=== PATIENT | male | born 1950 | race Caucasian/White ===

== ENCOUNTER → 2020-08-19 12:39 | Outpatient (CLI) | payer OTHER, SELFPAY ==
--- NOTE | 2020-08-19 12:41 | DI.US.S_ITS ---
PROCEDURE: US SCROTUM INDICATIONS: TESTICULAR FULLNESS - RULE OUT HYDROCELE AND HERNIA TECHNIQUE: Real-time scanning was performed of the scrotum and testicles, with image documentation. Color and pulse Doppler interrogation was performed of both testicles. COMPARISON: None. FINDINGS: Right: Testicle is normal in size at 3.0 x 3.5 x 6.0 cm, and homogenous in echotexture. Epididymis is normal in overall size and morphology except for presence of a cyst structure at the right epididymal midbody posteriorly, measuring up to 1.5 x 2.5 x 3.0 cm. This has a small internal septation. . No hydrocele or varicoceles. Overlying scrotal skin is normal in thickness. Left: Testicle is normal in size at 2.9 x 4.7 x 5.3 cm, and homogeneous in echotexture. Epididymis is normal in overall size and morphology except for a larger cystic structure associated with the left epididymis at all head/body junction measuring up to 3.4 x 3.9 x 6.8 cm. . No hydrocele or varicoceles. Overlying scrotal skin is normal in thickness. Doppler: Color and pulse Doppler demonstrate normal and symmetric arterial flow in both testicles. IMPRESSION: Bilateral cystic structures are present associated with the epididymis, measuring up to 3.0 cm on the right at the mid body and 6.8 cm longitudinally in its maximal dimension at the epididymal head/body junction on the left. These appear to represent epididymal cysts rather than hydroceles. No testicular inflammation or solid mass is found. Dictated by: Yg Herrera M.D. on 08/19/2020 at 15:22 Approved by: Yg Herrera M.D. on 08/19/2020 at 15:26
== END ==
PROVIDERS: PCP Family Medicine; Referring Provider Specialist; Visit Provider Specialist
DX: N50.89 Other specified disorders of the male genital organs (principal)
CPT/HCPCS: 76870

== ENCOUNTER 2020-09-07 07:56 | Day surgery (SDC) | payer OTHER, SELFPAY ==
[2020-09-07] VITALS (9 sets, daily range): BP systolic 110–128; BP diastolic 68–80; PULSE 51–63; RESP 10–20; TEMP 36–36.9; O2SAT 96–98; BMI 28.5
[2020-09-07] MEDS: LACTATED RINGERS 1,000 ML 42 ML IV (08:32)
[2020-09-07] MEDS: CEFAZOLIN 2 GM/100 ML FROZ.PIGGY IV (08:45)
--- NOTE | 2020-09-07 09:05 | SUR.OPER ---
Supine on padded OR bed, head on pillow, arms secured on padded arm boards at <90 degrees abduction, legs uncrossed, safety belt at thigh, tape over blanket over lower legs.
[2020-09-07] MEDS: BUPIVACAINE 0.5% (PF) VIAL 30 ML INJ (09:12)
--- NOTE | 2020-09-07 10:17 | PM.PREOP ---
Pre-operative Note COVID-19 COVID-19 status: Negative Result date/Date tested (Pos, Neg/Pending): 09/04/20 Interval Note History & Physical reviewed/Exam performed by Physician: Yes Changes to H&P: No
--- NOTE | 2020-09-07 10:24 | PM.OP.1 ---
Operative Date/Time/Diagnoses Date of procedure: 09/07/20 Time of procedure: 10:25 Pre-op diagnosis: Left inguinal hernia reducible Post-op diagnosis: same (Indirect with a lipoma of the cord.) Procedure & Clinicians Procedure: Repair left inguinal hernia with modified shoudice technique Same procedure as scheduled: Yes Indications: Symptomatic left inguinal hernia Surgeon: Oumar Pritchett Click Yes if Unassisted: Yes Anesthesia Type: General Operative Notes Findings: Indirect sac with a lipoma of the cord adjacent to it Closure Type: primary Specimen(s): none sent Prosthetic devices, grafts, tissues, transplants, or devices: None Estimated Blood Loss (mL): 5 Blood products transfused: none Procedure in detail: The patient was placed supine on the operating room table and underwent general LMA anesthesia. He was prepped and draped in the usual fashion. A transverse incision was made overlying the left internal ring and carried down to the level of the external oblique. The external oblique was opened parallel with its fibers through the external ring. The cord structures were elevated. The cremaster was opened proximally and search made for an indirect sac. A lipoma of the cord was from surrounding structures and ligated at the level the deep epigastric vessels. Distal portion was removed. An indirect sac was identified from the cord structures. It was opened dissected back to the level the deep epigastric vessels were it was suture ligated with a 2 0 silk. Local anesthetic was infiltrated in the base and the stump allowed to retract.. The floor was examined and was found to be mildly weakened.. The floor was opened from the internal ring to the pubic tubercle region. A 2 0 Prolene was used to suture the underside of the medial edge to the cut side of the lateral tissues running from pubic tubercle to recreate an internal ring. This ring was not but not constricting to the point of vascular embarrassment to the testicle. This stitch was then run back to the pubic tubercle suturing the cut edge of the medial tissues to the ileopubic tract and edge of the inguinal ligament. Was tied at the pubic tubercle. I decided not to incorporate any additional tissues. The repair appeared to be quite adequate. The external oblique was closed with a running 3 0 Vicryl suture. The subcu was closed with interrupted 4-0 Vicryl. The skin was closed with a running 4 0 Vicryl subcuticular stitch and Steri-Strips. Dressing was applied, the patient was awakened, and the patient was taken to the recovery area in good condition. Complications: none Post-operative Condition: stable Disposition: PACU Plan for aftercare: Follow-up in the office
[2020-09-07] MEDS: OXYCODONE/ACETAMINOPHEN 5/325 TABLET 1 TAB PO (10:35)
--- NOTE | 2020-09-07 10:55 | SUR.PHASEII ---
pt arrived to phase II via stretcher. pt sitting up, A&Ox3 and talking to RN at bedside. Drsg observed to be c/d/i. pt denies any pain/discomfort or nausea. pt awaiting arrival of spouse at this time. bed in lowest position and call light given to pt.
== END 2020-09-07 11:26 | disposition home or self-care (01) ==
PROVIDERS: PCP Family Medicine; Referring Provider Family Medicine; Visit Provider Specialist
PROC: (CPT 49505; principal; 2020-09-07 09:15)
DX: K40.90 Unilateral inguinal hernia, without obstruction or gangrene, not specified as recurrent (principal); D17.6 Benign lipomatous neoplasm of spermatic cord
CPT/HCPCS: 49505; 82962; J0690; J1100; J1885; J2250; J2405; J2704; J3010

== ENCOUNTER → 2025-04-02 07:32 | Outpatient (CLI) | payer OTHER, SELFPAY ==
--- NOTE | 2025-04-02 07:38 | DI.MRI.S_ITS ---
PROCEDURE: MR LUMBAR SPINE WO CON INDICATIONS: lower back pain radiating down both legs TECHNIQUE: Noncontrast sagittal T1 spin echo and T2 fast echo, sagittal STIR, and T2 fast spin echo through the lumbar spine. In cases with scoliosis, additional coronal T2 fast spin echo may be performed. COMPARISON: None. FINDINGS: Image quality: Excellent. Alignment and Curvature: There is grade 1 L4 anterolisthesis Bone Marrow: Mild Modic type 1 reactive endplate changes at L3-L4. No suspicious focal lesion seen. Spinal Cord: Conus medullaris terminates at the L1 level. Visualized cord demonstrates normal signal and size. Paraspinous Soft Tissues: No paravertebral masses. T12-L1: Normal appearance. L1-L2: Bilateral facet arthropathy, without spinal stenosis. L2-L3: There is a moderate to large disc bulge as well as bilateral facet arthropathy and ligamentum flavum thickening. There is mild central spinal stenosis as well as moderate left foraminal stenosis and mild right foraminal stenosis, also mild left lateral recess stenosis. L3-L4: There is disc bulge as well as bilateral facet arthropathy and ligamentum flavum thickening. There is mild to moderate right lateral recess and right foraminal stenosis, also minimal central canal narrowing. L4-L5: There is disc bulge as well as significant bilateral facet arthropathy and ligamentum flavum thickening. There are probably several small synovial cysts posteriorly. There is mild to moderate right foraminal stenosis and mild left foraminal stenosis, also with moderate right lateral recess stenosis. L5-S1: There is disc bulge as well as prominent bilateral facet arthropathy and ligamentum flavum thickening. There is moderate to severe degree of right lateral recess stenosis with mild to moderate left lateral recess stenosis, also moderate to severe right foraminal stenosis and mild to moderate left foraminal stenosis. IMPRESSION: 1. Multilevel degenerative changes as described, with significant bilateral lateral spinal stenosis as above, more on the right at L4-L5 and L5-S1. 2. No disc extrusion or acute osseous lesions seen. Dictated by: Kehinde Peralta M.D. on 04/02/2025 at 18:04 Approved by: Kehinde Peralta M.D. on 04/02/2025 at 18:12
== END ==
LOC: MRI 07:37
PROVIDERS: PCP Family Medicine; Referring Provider Physician Assistant; Visit Provider Physician Assistant
DX: M51.369 Other intervertebral disc degeneration, lumbar region without mention of lumbar back pain or lower extremity pain (principal); M51.379 Other intervertebral disc degeneration, lumbosacral region without mention of lumbar back pain or lower extremity pain; M48.061 Spinal stenosis, lumbar region without neurogenic claudication; M48.07 Spinal stenosis, lumbosacral region
CPT/HCPCS: 72148

== ENCOUNTER → 2025-09-24 08:03 | Outpatient (CLI) | payer OTHER, SELFPAY ==
--- NOTE | 2025-09-24 08:03 | DI.ECHO.S_ITS ---
[facility] : : [id number] : [place] : : [id number] : : Phone: [phone] Echocardiogram Report + + :Name: SHAKILA MACKEY Study Date: 09/24/2025 Height: 70 in : :[facility] ReadingLocation: Weight: 200 lb : : Gender: Male BSA: 2.1 m2 : :: 1950 Age: 75 yrs BP: 133/79 mmHg: :Reason For Study: Systoic murmur : :Ordering Physician: Susan, : :Sulema ADHIKARI Performed By: Anand Turner : :Referring: Sulema Davis MD : + + Interpretation Summary Normal sinus rhythm. Normal LV size and wall thickness. Normal wall motion and LV systolic function. Ejection fraction is 60-65%. Stage I diastolic dysfunction. Normal chamber sizes. Aortic valve is a trileaflet structure characterized by mildly thickened and calcified leaflets. Aortic sclerosis without stenosis. Mildly dilated aortic root. Mildly dilated ascending aorta measuring 4.3 cm in diameter. Estimated PA systolic pressure is 26 mmHg assuming right atrial pressure of 3 mmHg. There is no prior echo available for comparison. Procedure: A two-dimensional transthoracic echocardiogram with color flow and Doppler was performed. The study quality was technically adequate. There is no prior echocardiogram noted for this patient. The patient was in normal sinus rhythm during the exam. Left Ventricle: The left ventricle is normal in size and wall thickness. Left ventricular systolic function is normal. The ejection fraction is estimated to be 60-65%. There are no focal wall motion abnormalities. Grade I diastolic dysfunction with normal left atrial pressure. Right Ventricle: The right ventricle is normal in size and function. Atria: The left atrial size is normal. Right atrial size is normal. There is no Doppler evidence for an interatrial shunt. Mitral Valve: The mitral valve leaflets appear to open well. Mild MIO with an increased in LVOT velocities. There is no mitral valve stenosis. There is trace mitral regurgitation. Aortic Valve: The aortic valve is trileaflet. The aortic valve opens well. There is mild aortic valve sclerosis. There is no aortic valve stenosis. There is trace aortic regurgitation. Tricuspid Valve: The tricuspid valve is not well visualized, but is grossly normal. There is trace tricuspid regurgitation. The right ventricular systolic pressure is estimated to be at least 26 mmHg based on an estimated right atrial pressure of 3 mm Hg. Pulmonic Valve: The pulmonic valve is not well seen, but is grossly normal. There is trace pulmonic regurgitation. Great Vessels: The aortic root is mildly dilated. Based on patients BSA the proximal ascending aorta is dilated with a max diameter of 4.3 cm. Max diameter abdominal aorta 2.6cm. Max diameter proximal aortic arch 3.0 cm. Max diameter of descending aortic arch 3.1 cm. The pulmonary is not well visualized. The IVC is of normal diameter and collapses greater than 50% with a sniff. This suggests a low right atrial pressure of 3 mm Hg. Pericardium/ Pleura There is no pericardial effusion. MMode/2D Measurements & Calculations LVIDd: 4.1 cm LVOT diam: 2.3 cm LVIDs: 2.7 cm Ao root diam: 4.1 cm FS: 34.6 % asc Aorta Diam: 4.3 cm IVSd: 0.81 cm Ao Arch Diam (Prox Trans): 2.9 cm LVPWd: 0.91 cm LV edmonds. diameter/BSA (cm/m^2): 2.0 LV sys. diameter/BSA (cm/m^2): 1.3 LA A2 area: 16.9 cm2 IVC diam: 1.7 cm LA A4 area: 12.5 cm2 LA length (vol): 5.0 cm LA vol: 36.1 ml LA vol index: 17.3 ml/m2 RVD1 (basal): 3.3 cm RVD2 (mid): 3.1 cm TAPSE: 2.2 cm Doppler Measurements & Calculations Ao V2 max: 194.8 cm/sec LVOT Max Trell: 132.5 cm/sec Ao V2 mean: 137.8 cm/sec LV V1 max P.0 mmHg Ao max P.2 mmHg LV V1 VTI: 25.2 cm Ao mean P.6 mmHg MAMADOU(I,D): 3.2 cm2 Ao V2 VTI: 33.4 cm MAMADOU(V,D): 2.9 cm2 sev ratio: 0.75 MAMADOU indexed to BSA (cm^2/m^2): 1.6 AI P1/2t: 551.3 msec AI dec slope: 245.0 cm/sec2 MV E max trell: 63.2 cm/sec TR max trell: 240.8 cm/sec MV A max trell: 79.8 cm/sec TR max P.2 mmHg MV E/A: 0.79 Med Peak E' Trell: 11.6 cm/sec E/E' med: 5.4 Lat Peak E' Trell: 8.0 cm/sec E/E' lat: 7.9 E/e' average: 6.7 MV dec time: 0.20 sec SV(LVOT): 108.2 ml Electronically signed by: Janelle Finley M.D. on Reading Physician:09/25/2025 05:26 AM
== END ==
LOC: ECHO 08:03
PROVIDERS: PCP Family Medicine; Referring Provider Family Medicine; Visit Provider Family Medicine
DX: R01.1 Cardiac murmur, unspecified (principal); I35.8 Other nonrheumatic aortic valve disorders; I77.810 Thoracic aortic ectasia; I77.89 Other specified disorders of arteries and arterioles
CPT/HCPCS: 93306